=== PATIENT | female | born 1985 | race Caucasian/White ===

== ENCOUNTER 2018-01-29 18:59 | Emergency (ER) | payer OTHER, SELFPAY ==
[2018-01-29 19:22] VITALS: BP 141/124; PULSE 86; RESP 15; TEMP 36.7; O2SAT 97
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
[2018-01-29] MEDS: IBUPROFEN 400 MG TABLET 800 MG PO (19:41)
[2018-01-29 20:41] VITALS: BP 163/81; PULSE 81; RESP 18; O2SAT 98
== END 2018-01-29 20:41 | disposition home or self-care (01) ==
PROVIDERS: Emergency Provider Emergency Medicine
DX: S16.1XXA Strain of muscle, fascia and tendon at neck level, initial encounter (principal); S29.019A Strain of muscle and tendon of unspecified wall of thorax, initial encounter; V44.5XXA Car driver injured in collision with heavy transport vehicle or bus in traffic accident, initial encounter
CPT/HCPCS: 72040; 99282; 99283

== ENCOUNTER 2018-03-08 08:15 | Outpatient (RCR) | payer OTHER, SELFPAY ==
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
== END 2018-03-09 11:53 ==
LOC: PHYS 08:15
PROVIDERS: Visit Provider Physician Assistant
DX: S13.4XXA Sprain of ligaments of cervical spine, initial encounter (principal); V89.2XXA Person injured in unspecified motor-vehicle accident, traffic, initial encounter
CPT/HCPCS: 97110; 97112; 97140; 97162

== ENCOUNTER 2018-04-27 14:04 | Emergency (ER) | payer OTHER, SELFPAY ==
[2018-04-27 14:28] VITALS: BP 165/95; PULSE 86; RESP 14; TEMP 36.5; O2SAT 98
--- NOTE | 2018-04-27 14:36 | DI.RAD.S_ITS ---
PROCEDURE: XR ANKLE RT MIN 3V INDICATIONS: ankle injury TECHNIQUE: 3 views of the ankle were acquired. COMPARISON: None. FINDINGS: Bones: No fractures or dislocations. Ankle mortise is normally aligned. No suspicious bony lesions. Calcaneal spurring. Calcification of the distal Achilles. Soft tissues: No tibiotalar joint effusion. Achilles tendon appears normal. IMPRESSION: 1. Achilles tendinopathy. 2. No acute fracture. No osseous lesion. If clinical suspicion and/or symptoms persist, further assessment with repeat plainfilms, or advanced imaging (e.g., CT, MRI, or bone scan) may be helpful for further assessment. Dictated by: Tony Drew M.D. on 04/27/2018 at 14:59 Approved by: Tony Drew M.D. on 04/27/2018 at 15:00
--- NOTE | 2018-04-27 14:37 | ED.LOWEXIN ---
HPI - Extremity Injury (Lower) General Chief Complaint: Extremity Injury, Lower Stated Complaint: States painful achilles tendon upto mid calf Time Seen by Provider: 04/27/18 14:15 Source: patient Mode of arrival: wheelchair Limitations: no limitations History of Present Illness HPI Narrative: 33-year-old female here for evaluation of right ankle pain. Patient states that she has had an Achilles injury in her left ankle. He states that today she was walking. No specific trauma but felt and heard a pop and then pain in the back of her leg extending up to the mid calf. Has been ambulatory since then. This event happened several hours prior to arrival here in the emergency department. He states that it feels like when she injured her Achilles tendon on the left. Has not tried anything for her symptoms prior to arrival. Related Data Previous Rx's Medication Instructions Recorded ibuprofen 600 mg PO Q6-8H PRN #60 tab 01/29/18 methocarbamol [Robaxin-] 750 mg PO Q6H PRN #30 tab 01/29/18 hydrocodone-acetaminophen [[place]] 1 tab PO Q6H PRN #7 tab 04/27/18 Allergies Allergy/AdvReac Type Severity Reaction Status Date / Time acetaminophen [From Percocet] Allergy Verified 01/29/18 19:22 oxycodone [From Percocet] Allergy Verified 01/29/18 19:22 Review of Systems Constitutional Denies fever(s) Cardiovascular Denies chest pain and Denies dyspnea Respiratory Denies dyspnea Musculoskeletal Comments: Right ankle pain Integumentary/Breasts Denies rash Hematologic/Lymphatic Comments: Not on anticoagulation PFSH Medical History Achilles rupture, left (Acute) No significant medical problems (Acute) Surgical History H/O knee surgery (Acute) History of cholecystectomy (Acute) Social History Smoking Status: Never smoker Social History Smoking Status: Never smoker Exam Initial Vital Signs Initial Vital Signs: Vital Signs Temperature 97.7 F 04/27/18 14:28 Pulse Rate 86 04/27/18 14:28 Respiratory Rate 14 04/27/18 14:28 Blood Pressure 165/95 H 04/27/18 14:28 Pulse Oximetry 98 04/27/18 14:28 Const General: cooperative, healthy appearing, comfortable, well developed, well groomed and No acute distress Orientation: alert, awake and oriented x3 Resp Effort & Inspection: normal respiratory effort Cardio Rate: regular rate Pulses: dorsalis pedis present on the right Skin Lesions: no lesions Rashes: no rashes Neuro General: alert, awake and oriented x3 Cognition: normal cognition Speech: speech normal Sensory Exam: no sensory deficits noted Extrem Other: Patient with tenderness to palpation throughout the entire right ankle. The Achilles tendon is palpable from the posterior calcaneus up the posterior portion of the leg. She is tender along this. He is also tender along the medial lateral malleolus and also along the anterior tibial line. Psych Appearance: grossly normal and well kempt Course Orders Ordered: ED Orders 04/27/18 14:36 XR ankle RT min 3V Stat Discontinued Medications Hydrocodone Bitart/Acetaminophen ([place] 10/325) 1 tab PO NOW ONE Stop: 04/27/18 14:37 Last Admin: 04/27/18 14:44 Dose: Hydrocodone Bitart/Acetaminophen ([place] 5/325) 1 tab PO NOW ONE Stop: 04/27/18 14:42 Last Admin: 04/27/18 14:43 Dose: 1 tab Vital Signs - 8 hr 04/27/18 14:28 Temperature 97.7 F Pulse Rate 86 Respiratory Rate 14 Blood Pressure 165/95 H Pulse Oximetry 98 MDM - Extremity Injury (Lower) Imaging Data X-ray ankle: Radiologist's impression: No fractures or dislocations MDM Narrative Medical decision making narrative: Patient is neurovascularly intact. The Achilles tendon appears to be intact based on the physical exam. No fractures on the x-rays. Send home with crutches and Hardy bandage. She was instructed that she needed to contact her primary care doctor for follow-up. She expressed understanding and agreement with plan. Patient stated that despite her allergy to Percocet she can take Vicodin. Discharge Plan Departure Patient Disposition: Home Clinical Impression: Ankle pain, right Instructions: How to Use Crutches, DI for Ankle Pain Activity Restrictions/Additional Instructions: You can put weight on your right ankle if needed. Use the crutches in the Hardy bandage as needed for discomfort. Contact your primary care doctor for a follow-up. Prescriptions: New hydrocodone-acetaminophen [[place]] 5-325 mg tablet 1 tab PO Q6H PRN (Reason: pain) Qty: 7 RF: 0 No Action methocarbamol [Robaxin-750] 750 mg tablet 750 mg PO Q6H PRN (Reason: spasm) Qty: 30 RF: 0 ibuprofen 600 mg tablet 600 mg PO Q6-8H PRN (Reason: pain) Qty: 60 RF: 0
[2018-04-27] MEDS: HYDROCODONE/ACET 5/325 TABLET 1 TAB PO (14:43)
[2018-04-27 15:46] VITALS: BP 153/101; PULSE 84; RESP 18; O2SAT 97
== END 2018-04-27 15:50 | disposition home or self-care (01) ==
PROVIDERS: Emergency Provider Emergency Medicine
DX: M25.571 Pain in right ankle and joints of right foot (principal)
CPT/HCPCS: 73610; 99282; 99283